=== PATIENT | female | born 1960 | race Caucasian/White ===

== ENCOUNTER 2017-08-30 06:59 | Emergency (ER) | payer BC | END 2017-08-30 07:35 | disposition home or self-care (01) | LOC: ER 06:59 | DX: S90.512A Abrasion, left ankle, initial encounter (principal); E78.00 Pure hypercholesterolemia, unspecified; X58.XXXA Exposure to other specified factors, initial encounter; Y93.89 Activity, other specified; Y99.8 Other external cause status; Y92.89 Other specified places as the place of occurrence of the external cause | CPT/HCPCS: 99281 ==